=== PATIENT | female | born 1965 | race Two or more races ===

== ENCOUNTER → 2018-03-31 | Outpatient (CLI) | payer MEDICARE, OTHER ==
[2014-03-08 16:00] VITALS: BP 96/65
[~2018-03-31] MED LIST: CIPR250T30 PO; PHEN-318 PO; [UNRECOGNIZED DRUG - REMARK]
--- NOTE | 2018-03-31 15:10 | RAD ---
EXAM: Abdomen and pelvis CT without intravenous contrast. HISTORY: Hematuria. Flank pain. TECHNIQUE: Computed tomographic images of the abdomen and pelvis were obtained without contrast. Multiplanar reformatting was performed. *One or more of the following individualized dose reduction techniques were utilized for this examination: 1. Automated exposure control. 2. Adjustment of the mA and/or kV according to patient size. 3. Use of iterative reconstruction technique. COMPARISON: 05/17/2015. FINDINGS: Evaluation of the lower thorax demonstrates no infiltrate or pleural effusion. No hepatic lesion is seen. The gallbladder, pancreas, spleen and adrenal glands are unremarkable. There is a 3 mm nonobstructing stone within the lower pole the right kidney. There is slight increased density within the bilateral renal collecting system, not clearly within limits to suggest nephrocalcinosis. There is no appendicitis. There is no bowel obstruction. The bladder is nearly empty. There are prominent lymph nodes throughout the root of the mesentery and there is mesenteric stranding. This is a nonspecific finding, not clearly within limits to suggest mesenteric panniculitis or adenitis. No osseous lesion is seen. IMPRESSION: 1. Small nonobstructing right renal stone. There is symmetric areas of increased density within both kidneys, not clearly within limits to suggest. This may be due to a component of patient dehydration. 2. Prominent lymph nodes within the root of the mesentery and slight mesenteric stranding. This may be reactive in etiology.. Electronically signed by: Angle Myers MD (03/31/2018 3:05 PM) [id number]
== END | disposition home or self-care (01) ==
LOC: CT 14:22
PROVIDERS: ATTEND Family Medicine
DX: N20.0 Calculus of kidney (principal)
CPT/HCPCS: 74176

== ENCOUNTER → 2019-05-22 | Outpatient (CLI) | payer MEDICARE, OTHER ==
[2014-03-08 16:00] VITALS: BP 96/65
--- NOTE | 2019-05-22 18:53 | RAD ---
Examination: FOOT RIGHT 3V, CALCANEUS RIGHT History: Pain for the past 3 days without injury Comparison/Correlation: None Findings: 3 views of the right foot were obtained. 2 views of the right calcaneus were obtained. Joint spaces are normal. No acute fracture or bone destruction. Soft tissues are unremarkable. No degenerative change. No calcaneal spur. Impression: Normal right calcaneus and right foot x-ray exams. Electronically signed by: Jai Vazquez MD (05/22/2019 6:50 PM) [id number]
== END | disposition home or self-care (01) ==
LOC: DXRAD 12:28
PROVIDERS: ATTEND Family Medicine
DX: M79.671 Pain in right foot (principal)
CPT/HCPCS: 73630; 73650

== ENCOUNTER → 2019-08-20 | Outpatient (CLI) | payer MEDICARE, OTHER ==
[2014-03-08 16:00] VITALS: BP 96/65
--- NOTE | 2019-08-20 15:48 | RAD ---
EXAM: KNEE BILAT 2V, KNEE STANDING BILAT AP 08/20/2019 12:00 AM CLINICAL INDICATION:Bilateral knee pain COMPARISON:Right knee radiograph 10/27/2018 at MRI left knee 07/21/2018 TECHNIQUE:Standing AP view of the bilateral knees, lateral and sunrise views of the right left knee. FINDINGS: Right knee: No acute fracture or malalignment. Joint spaces are maintained. There are tiny patellofemoral osteophytes. Chondrocalcinosis is seen in the medial and lateral compartments. No joint effusion. Soft tissue is normal. Left knee: No acute fracture or malalignment. Joint spaces are maintained. Subchondral cyst information is seen in the patella. Minimal chondrocalcinosis in the medial compartment. No joint effusion. Soft tissue is normal. IMPRESSION:Mild bilateral patellofemoral degenerative joint disease. Electronically signed by: Nancy Waldron MD (08/20/2019 3:45 PM) [id number]
== END | disposition home or self-care (01) ==
LOC: DXRAD 15:18
PROVIDERS: ATTEND Orthopaedic Surgery
DX: M17.0 Bilateral primary osteoarthritis of knee (principal); M11.262 Other chondrocalcinosis, left knee; M11.261 Other chondrocalcinosis, right knee; M25.862 Other specified joint disorders, left knee; M25.761 Osteophyte, right knee
CPT/HCPCS: 73560; 73565